=== PATIENT | male | born 1990 | race Caucasian/White ===

== ENCOUNTER 2024-04-29 02:59 | Emergency (ER) | payer MEDICAID, SELFPAY ==
[2024-04-29 03:27] VITALS: BP 127/84; PULSE 79; RESP 16; TEMP 36.9; O2SAT 98; BMI 31.8
[2024-04-29 04:20] LABS: Influenza A PCR NEGATIVE (Negative); Influenza B PCR NEGATIVE (Negative); Resp Syncy Virus RNA Qual PCR NEGATIVE (Negative); SARS COV2 PCR INHOUSE NEGATIVE (Negative)
[2024-04-29 04:52] LABS: MANUAL DIFF FLAG NO
[2024-04-29 04:53] LABS: Basophils Absolute Auto 0.1 X10*3/uL (0.0-0.2); Basophils Percent Auto 0.6 % (0-2); Eosinophils Absolute Auto 0.3 X10*3/uL (0.0-0.4); Eosinophils Percent Auto 2.9 % (0-4); Hematocrit 49.8 % (42.0-52.0); Hemoglobin 17.3 g/dl (14.0-18.0); Imm Gran Abs Auto 0.18 X10*3/uL (0.00-0.03); Lymphocytes Absolute Auto 2.8 X10*3/uL (1.2-4.9); Lymphocytes Percent Auto 30.9 % (20-40); Mean Corpuscular HGB Conc 34.7 g/dl (31.0-36.0); Mean Corpuscular Hemoglobin 29.6 pg (27.0-33.0); Mean Corpuscular Volume 85.1 fL (80.0-98.0); Mean Platelet Volume 9.3 fL (9.4-12.4); Monocytes Absolute Auto 0.9 X10*3/uL (0.1-1.2); Monocytes Percent Auto 9.4 % (2-11); Neutrophils Absolute Auto 4.9 x10*3/uL (2.0-8.3); Neutrophils Percent Auto 54.2 % (45-73); Platelet Count 235 X10*3/uL (160-400); Red Blood Count 5.85 X10*6/uL (4.60-5.80); Red Cell Distribution Width 12.9 % (11.0-16.0); White Blood Count 9.1 X10*3/uL (4.8-10.8)
[2024-04-29 05:08] LABS: Alanine Aminotransferase 72 U/L (0-40); Albumin Level 4.7 g/dL (3.5-5.0); Alkaline Phosphatase 66 U/L (39-117); Anion Gap 12 (12-20); Aspartate Amino Transferase 25 U/L (5-37); Bilirubin Total 0.6 mg/dL (0.0-1.0); Blood Urea Nitrogen 13 mg/dL (9-16); Calcium 9.8 mg/dL (8.4-10.2); Carbon Dioxide 30 mmol/L (22-29); Chloride 103 mmol/L (96-108); Creatinine Clr Calc Pharmacy 82.9; Estimated Glomerular Filt Rate 54; Glucose Random 102 mg/dL (60-115); Potassium 4.1 mmol/L (3.3-5.1); Sodium 141 mmol/L (135-145); Total Protein 7.7 g/dL (6.5-8.0)
[2024-04-29 06:00] VITALS: RESP 18
[2024-04-29 07:24] VITALS: BP 113/75; PULSE 70; RESP 14; TEMP 37.1; O2SAT 97
--- NOTE | 2024-04-29 07:24 | ED.GENADULT ---
HPI - General Adult General Chief complaint: General Medical Stated complaint: light headed/ difficulty breathing Time Seen by Provider: 04/29/24 06:32 Source: patient Mode of arrival: ambulatory Limitations: no limitations History of Present Illness ED Provider: Hayden Abbott PA-C HPI narrative: Carlitos is a 33 year old male who is otherwise healthy who presents to the ED today for shortness of breath and blurry vision. He notes that his symptoms started yesterday morning when he woke up with mild shortness of breath that progressed throughout the day. Later in the afternoon, around 1-2 PM, he noticed that his vision felt blurry when looking down at his hands or at his phone. He notes associated symptoms of mild lightheadedness/dizziness as well as nausea and a feeling of tightness in his throat, though states that all of his symptoms have spontaneously resolved by the time of this interview. He denies any inciting incident, history of asthma, allergies to any medications/foods, trying any new medications/foods, or struggling with seasonal allergies. He also denies any associated fevers, chills, headache, chest pain/palpitations, abdominal pain, N/V/D, recent travel, recent illnesses, and recent tick/bug bites. complaint: SOB, blurry vision Onset (ago): day(s) (1) Location: eyes and neck Pain Consistency: now resolved Associated symptoms: denies other symptoms Treatments prior to arrival: none Related Data Allergies Allergy/AdvReac Type Severity Reaction Status Date / Time No Known Allergies Allergy Unverified 04/29/24 03:31 Review of Systems Review of Systems: Yes all other systems are reviewed and are negative PMFSH Social History Social History Advance Directives: No Advance Directives Information Provided: No Do you have a plan to hurt others: No Plan Physical Exam ED Vital Signs: Vital Signs - 24 hr 04/29/24 03:27 04/29/24 06:00 04/29/24 07:24 Temperature 98.4 F 98.8 F Pulse Rate 79 70 Respiratory Rate 16 18 14 Blood Pressure 127/84 113/75 Pulse Oximetry 98 97 Oxygen Delivery Method Room Air Room Air 04/29/24 07:35 Temperature 98.8 F Pulse Rate 70 Respiratory Rate 14 Blood Pressure 113/75 Pulse Oximetry 97 Oxygen Delivery Method Room Air BMI result Body Mass Index 31.8 Appearance: Alert. Oriented X3. No acute distress. Head: normocephalic, atraumatic. Eyes: LONNY, EOMI, peripheral vision appears slightly limited, though equal bilaterally ENT: Pharynx normal. No tonsillar swelling or exudate. Neck: Normal inspection. Neck supple. CVS: regular rate and rhythm, no murmurs, rubs, or gallops Respiratory: lungs clear to auscultation bilaterally, normal work of breathing without accessory muscle use Skin: Skin warm and dry. Normal skin color. Normal skin turgor. No rashes. Extremities: No lower extremity edema. No joint swelling. Neuro/psych: Oriented X 3. No motor deficit. No sensory deficit. Normal speech and cognition. Medical Decision Making Medical Decision Making MDM Narrative: Carlitos is a 33 year old male who is otherwise healthy who presents to the ED today for shortness of breath and blurry vision. He notes that his symptoms started yesterday morning when he woke up with mild shortness of breath that progressed throughout the day. Later in the afternoon, around 1-2 PM, he noticed that his vision felt blurry when looking down at his hands or at his phone. He notes associated symptoms of mild lightheadedness/dizziness as well as nausea and a feeling of tightness in his throat, though states that all of his symptoms have spontaneously resolved by the time of this interview. He denies any inciting incident, history of asthma, allergies to any medications/foods, trying any new medications/foods, or struggling with seasonal allergies. He also denies any associated fevers, chills, headache, chest pain/palpitations, abdominal pain, N/V/D, recent travel, recent illnesses, and recent tick/bug bites. Patient was tested for COVID, influenza, and RSV, all of which returned negative. General labs were also drawn including a CMP and CBC which revealed a slightly elevated creatinine at 1.49 without any other gross abnormalities. At this time, the diagnosis is still not clear and difficult to determine due to the spontaneous resolution of the patient's symptoms. It is possible that this was an exacerbation of seasonal allergies, given the clinical picture as well as the time of year. It is also possible that this is an exacerbation of underlying asthma, given the patient's symptoms of shortness of breath as well as mild chest/throat tightness. Vitals, lab work, and swabs ruled out any infectious etiology, as there were no signs of leukocytosis, patient is afebrile with normal sinus rhythm and COVID, influenza, and RSV swabs all came back negative. Patient's lab work and clinical picture are reassuring and patient remains stable on exam. Will plan for outpatient follow up. Of note, patient does not currently have a PCP, therefore will be given resources to set this up locally. Differential Diagnosis Differential Diagnoses: The differential diagnosis associated with the presentation includes Asthma, seasonal allergies, allergic reaction, URI (Covid, flu, RSV), doubt acute glaucoma, stroke or other organic cause Lab Data MDM Lab Attestation statement: I reviewed the patient's lab results. Mild elevation of creatinine with otherwise unremarkable workup without any major metabolic derangement Unknown baseline renal function 04/29/24 04:48 04/29/24 04:48 Labs: Lab Results 04/29/24 04/29/24 Range/Units 03:38 04:48 WBC 9.1 (4.8-10.8) X10*3/uL RBC 5.85 H (4.60-5.80) X10*6/uL Hgb 17.3 (14.0-18.0) g/dl Hct 49.8 (42.0-52.0) % MCV 85.1 (80.0-98.0) fL MCH 29.6 (27.0-33.0) pg MCHC 34.7 (31.0-36.0) g/dl RDW 12.9 (11.0-16.0) % Plt Count 235 (160-400) X10*3/uL MPV 9.3 L (9.4-12.4) fL Immature Gran % (Auto) 2.0 H (0.0-0.4) % Neut % (Auto) 54.2 (45-73) % Lymph % (Auto) 30.9 (20-40) % [place] % (Auto) 9.4 (2-11) % Eos % (Auto) 2.9 (0-4) % Baso % (Auto) 0.6 (0-2) % Lymph # (Auto) 2.8 (1.2-4.9) X10*3/uL [place] # (Auto) 0.9 (0.1-1.2) X10*3/uL Eos # (Auto) 0.3 (0.0-0.4) X10*3/uL Baso # (Auto) 0.1 (0.0-0.2) X10*3/uL Abs Immat Gran (auto) 0.18 H (0.00-0.03) X10*3/uL Absolute Neuts (auto) 4.9 (2.0-8.3) x10*3/uL Absolute Nucleated RBC 0.000 (0.0-0.012) X10*3/uL Nucleated RBC % (auto) 0.0 (0.0-0.2) /100WBC Sodium 141 (135-145) mmol/L Potassium 4.1 (3.3-5.1) mmol/L Chloride 103 (96-108) mmol/L Carbon Dioxide 30 H (22-29) mmol/L Anion Gap 12 (12-20) BUN 13 (9-16) mg/dL Creatinine 1.49 H (0.5-1.4) mg/dL Estim Creat Clear Calc 82.9 Estimated GFR 54 Random Glucose 102 (60-115) mg/dL Calcium 9.8 (8.4-10.2) mg/dL Total Bilirubin 0.6 (0.0-1.0) mg/dL AST 25 (5-37) U/L ALT 72 H (0-40) U/L Alkaline Phosphatase 66 (39-117) U/L Total Protein 7.7 (6.5-8.0) g/dL Albumin 4.7 (3.5-5.0) g/dL Influenza Type A (PCR) NEGATIVE (Negative) Influenza Type B (PCR) NEGATIVE (Negative) RSV RNA Qual (PCR) NEGATIVE (Negative) SARS-CoV-2 RNA (RT-PCR) NEGATIVE (Negative) Tests considered The following testing was considered but not selected: Consider chest x-ray given shortness of breath however his lung sounds were clear and he was oxygenating well on room air Prescription Management I considered prescription management with: Antibiotic Critical Care Time Critical Care Time Critical Care Time: No Discharge Plan Discharge Clinical Impression: Blurred vision Patient Disposition: Home, Self-Care Instructions: Blurred Vision (ED) Additional Instructions: your exam and lack of symptoms today were reassuring your lab workup today showed a mild elevation of your kidney function, recommend plenty of oral hydration recommend following up with a PCP for repeat labs in the future If you develop new or worsening symptoms call 911 or come back to the ER for further evaluation. Referrals: [facility] [Provider Group] [facility] [Provider Group] [facility] Primary [facility] [Provider Group] [facility] [Primary Care Provider] - Interventions: ED Discharge Assessment Last Done: 04/29/24 07:35 Discharge Date/Time: 04/29/24 07:35 Print Language: Prydeinig
[2024-04-29 07:35] VITALS: BP 113/75; PULSE 70; RESP 14; TEMP 37.1; O2SAT 97
== END 2024-04-29 07:35 | disposition home or self-care (01) ==
PROVIDERS: Emergency Provider Emergency Medicine Emergency Medical Services
DX: H53.8 Other visual disturbances (principal); R06.02 Shortness of breath; Z03.818 Encounter for observation for suspected exposure to other biological agents ruled out
CPT/HCPCS: 0241U; 36415; 80053; 85025; 99283

== ENCOUNTER 2024-12-20 12:17 | Emergency (ER) | payer MEDICAID, SELFPAY ==
--- NOTE | 2024-12-20 12:18 | ECG_ITS ---
Test Reason : CP Blood Pressure : */* mmHG Vent. Rate : 81 BPM Atrial Rate : 81 BPM P-R Int : 162 ms QRS Dur : 98 ms QT Int : 364 ms P-R-T Axes : 58 39 11 degrees QTcB Int : 422 ms Normal sinus rhythm Normal ECG When compared with ECG of 30-Jan-2009 16:56, MANUAL COMPARISON REQUIRED PREVIOUS ECG IS INCOMPATIBLE Referred By: Generic ED Physician Electronically Signed By: Ole Scales
[2024-12-20 12:30] VITALS: BP 141/67; PULSE 81; RESP 20; TEMP 36.6; O2SAT 97; BMI 30.6
--- NOTE | 2024-12-20 12:30 | ED.GENADULT ---
HPI - General Adult General Chief complaint: Syncope Stated complaint: Chest pain, passed out Related Data Allergies Allergy/AdvReac Type Severity Reaction Status Date / Time No Known Allergies Allergy Verified 12/20/24 12:32 [facility] Social History Social History Advance Directives: No Advance Directives Information Provided: No Do you have a plan to hurt others: No Plan Physical Exam ED Vital Signs: BMI result Body Mass Index 30.6 Course Course Course Narrative: RME, this is a rapid medical exam performed by Khanh Lutz please refer to primary provider for complete H&P- 34 year old male presents for evaluation of chest pain. He reports that he was driving when he had a sudden chest pain. He parked the car and then reports a syncopal episode. He is unsure how long he was out for. He reports his pain has resolved and he came straight to the ER when he woke up. Plan for cardiac workup Medical Decision Making Lab Data 12/20/24 12:36 12/20/24 12:36 Labs: Lab Results 12/20/24 Range/Units 12:36 WBC 7.3 (4.8-10.8) X10*3/uL RBC 5.60 (4.60-5.80) X10*6/uL Hgb 16.5 (14.0-18.0) g/dl Hct 46.4 (42.0-52.0) % MCV 82.9 (80.0-98.0) fL MCH 29.5 (27.0-33.0) pg MCHC 35.6 (31.0-36.0) g/dl RDW 12.4 (11.0-16.0) % Plt Count 227 (160-400) X10*3/uL MPV 9.8 (9.4-12.4) fL Immature Gran % (Auto) 0.7 H (0.0-0.4) % Neut % (Auto) 51.7 (45-73) % Lymph % (Auto) 36.8 (20-40) % [place] % (Auto) 7.0 (2-11) % Eos % (Auto) 3.3 (0-4) % Baso % (Auto) 0.5 (0-2) % Lymph # (Auto) 2.7 (1.2-4.9) X10*3/uL [place] # (Auto) 0.5 (0.1-1.2) X10*3/uL Eos # (Auto) 0.2 (0.0-0.4) X10*3/uL Baso # (Auto) 0.0 (0.0-0.2) X10*3/uL Abs Immat Gran (auto) 0.05 H (0.00-0.03) X10*3/uL Absolute Neuts (auto) 3.8 (2.0-8.3) x10*3/uL Absolute Nucleated RBC 0.000 (0.0-0.012) X10*3/uL Nucleated RBC % (auto) 0.0 (0.0-0.2) /100WBC Sodium 140 (135-145) mmol/L Potassium 4.1 (3.3-5.1) mmol/L Chloride 108 (96-108) mmol/L Carbon Dioxide 28 (22-29) mmol/L Anion Gap 8 L (12-20) BUN 18 H (9-16) mg/dL Creatinine 1.14 (0.5-1.4) mg/dL Estim Creat Clear Calc 108.7 Estimated GFR > 60 Random Glucose 121 H (60-115) mg/dL Calcium 9.2 D (8.4-10.2) mg/dL Magnesium 2.2 (1.6-2.6) mg/dL Total Bilirubin 0.7 (0.0-1.0) mg/dL AST 29 (5-37) U/L ALT 70 H (0-40) U/L Alkaline Phosphatase 69 (39-117) U/L Troponin I High Sens < 2.7 (<3.5-35.0) ng/L Total Protein 7.4 (6.5-8.0) g/dL Albumin 4.6 (3.5-5.0) g/dL Lipase 19 (8-78) U/L Influenza Type A (PCR) NEGATIVE (Negative) Influenza Type B (PCR) NEGATIVE (Negative) RSV RNA Qual (PCR) NEGATIVE (Negative) SARS-CoV-2 RNA (RT-PCR) NEGATIVE (Negative) Discharge Plan Discharge Clinical Impression: Chest pain Patient Disposition: Left W/O Completing Treatment Discharge Date/Time: 12/20/24 15:55
[2024-12-20 12:42] LABS: MANUAL DIFF FLAG NO
[2024-12-20 12:43] LABS: Basophils Percent Auto 0.5 % (0-2); Eosinophils Absolute Auto 0.2 X10*3/uL (0.0-0.4); Eosinophils Percent Auto 3.3 % (0-4); Hematocrit 46.4 % (42.0-52.0); Hemoglobin 16.5 g/dl (14.0-18.0); Imm Gran Abs Auto 0.05 X10*3/uL (0.00-0.03); Imm Gran Pct Auto 0.7 % (0.0-0.4); Lymphocytes Absolute Auto 2.7 X10*3/uL (1.2-4.9); Lymphocytes Percent Auto 36.8 % (20-40); Mean Corpuscular HGB Conc 35.6 g/dl (31.0-36.0); Mean Corpuscular Hemoglobin 29.5 pg (27.0-33.0); Mean Corpuscular Volume 82.9 fL (80.0-98.0); Mean Platelet Volume 9.8 fL (9.4-12.4); Monocytes Absolute Auto 0.5 X10*3/uL (0.1-1.2); Neutrophils Absolute Auto 3.8 x10*3/uL (2.0-8.3); Neutrophils Percent Auto 51.7 % (45-73); Platelet Count 227 X10*3/uL (160-400); Red Cell Distribution Width 12.4 % (11.0-16.0); White Blood Count 7.3 X10*3/uL (4.8-10.8)
[2024-12-20 12:59] LABS: Alanine Aminotransferase 70 U/L (0-40); Albumin Level 4.6 g/dL (3.5-5.0); Alkaline Phosphatase 69 U/L (39-117); Anion Gap 8 (12-20); Aspartate Amino Transferase 29 U/L (5-37); Bilirubin Total 0.7 mg/dL (0.0-1.0); Blood Urea Nitrogen 18 mg/dL (9-16); Calcium 9.2 mg/dL (8.4-10.2); Carbon Dioxide 28 mmol/L (22-29); Chloride 108 mmol/L (96-108); Creatinine Clr Calc Pharmacy 108.7; Estimated Glomerular Filt Rate > 60; Glucose Random 121 mg/dL (60-115); Lipase 19 U/L (8-78); Magnesium 2.2 mg/dL (1.6-2.6); Potassium 4.1 mmol/L (3.3-5.1); Sodium 140 mmol/L (135-145); Total Protein 7.4 g/dL (6.5-8.0)
[2024-12-20 13:13] LABS: Troponin-I High Sensitivity < 2.7 ng/L (<3.5-35.0)
[2024-12-20 13:31] LABS: Influenza A PCR NEGATIVE (Negative); Influenza B PCR NEGATIVE (Negative); Resp Syncy Virus RNA Qual PCR NEGATIVE (Negative); SARS COV2 PCR INHOUSE NEGATIVE (Negative)
--- OUTSIDE RECORDS SUMMARY | 2024-12-20 18:13 | XMS_ITS | Encounter Summary ---
Author Organization [facility] Address [address] [place] [id number] Phone Care Team Providers Care Quality Compliance Consultant Name Role Phone Haja Montgomery Primary Care Provider [phone] Encounter Details Date Type Department Care Team (Late st Contact Info) Description 01/11/2010 Documentation [facility] [place] [facility] [address] [place] [address] Family Medicine, Physician [address] [place] [address] Social History Tobacco Use Types Packs/Day Years Used Date Smoking Tobacco: Never Assessed Sex and Gender Information Value Date Recorded Sex Assigned at Not on file Legal Sex Male 4:27 PM EDT Gender Identity Not on file Sexual Orientation Not on file documented as of this encounter Plan of Treatment Not on file documented as of this encounter Visit Diagnoses Not on filedocumented in this encounter Care Teams Quality Compliance Consultant Relationship Specialty Start Date End Date Haja Montgomery [address] [place] [address] PCP - General 04/03/17 documented as of this encounter
--- OUTSIDE RECORDS SUMMARY | 2024-12-20 18:13 | XMS_ITS | Encounter Summary ---
Author Organization [facility] Address [address] [place], [place] [id number] Phone Care Team Providers Care Financial Aid Administrator Name Role Phone Haja Montgomery Primary Care Provider [phone] Encounter Details Date Type Department Care Team (Late st Contact Info) Description 04/09/2017 Conversion Encounter [facility] [place] [address] [place] [address] Social History Tobacco Use Types Packs/Day Years [...] on filedocumented in this encounter Care Teams Financial Aid Administrator Relationship Specialty Start Date End Date Haja Montgomery [address] [place] [address] PCP - General 04/03/17 documented as of this encounter
--- OUTSIDE RECORDS SUMMARY | 2024-12-20 18:13 | XMS_ITS | Clinical Summary ---
Author Organization [facility] Address [address] [place] [address] Care Team Providers Care Heddler Name Role Phone Unavailable Primary Care Provider Unavailabl e Medications No known medications Active Problems No known active problems Social History Tobacco Use Types Packs/Day Years Used Date Smoking Tobacco: Never Smokeless Tobacco: Never Sex and Gender Information Value Date Recorded Sex Assigned at Not on file Gender Identity Not on file Sexual Orientation Not on file Plan of Treatment Health Maintenance Due Date Last Done Comments Hepatitis B Vaccines (1 of 3 - 3-dose series) 1989 Hepatitis C Screening 1989 COVID-19 Vaccine (#1) 06/04/1990 Depression Screening 2001 Preventative Health Evaluation 12/04/2007 DTap / Tdap / Td (1 - Tdap) 2008 Influenza Vaccine (#1) 2024 Pneumococcal Vaccine Aged Out No long er eligible based on patient's age to complete this topic RSV Ped < 20 months Aged Out No longe r eligible based on patient's age to complete this topic
--- OUTSIDE RECORDS SUMMARY | 2024-12-20 18:13 | XMS_ITS | Clinical Summary ---
Author Organization [facility] Address [address] [place] [phone] Phone Care Team Providers Care School Physical Therapist Name Role Phone Haja Montgomery Primary Care Provider [phone] Immunizations Immunization Administration Dates Next Due DTP 03/23/1995, 1,11/25/1990,06/11,02/18/1990 H1N1 06/13/2009 Hep B, ped/adol 04/07/2002,10/21/2001,06/14/1999 Hib (PRP-T) 07/14/1991,11/22/1990 Influenza Split 06/11/2002 Influenza, injectable, trivalent 06/11/2002 MMR 03/23/1995,07/14/1991 Meningococcal Conj (Menactra) MCV4P 07/02/2006 OPV 03/23/1995, 1,06/11/1990,02/18 Td (adult) (MBL), 2 Lf tetan us toxoid, PF, adsorbed 10/21/2001 Tdap 10/26/2008 Social History Tobacco Use Types Packs/Day Years Used Date Smoking Tobacco: Never Assessed Sex and Gender Information Value Date Recorded Sex Assigned at Not on file Legal Sex Male 4:27 PM EDT Gender Identity Not on file Sexual Orientation Not on file Plan of Treatment Health Maintenance Due Date Last Done Comments Varicella Vaccines (1 of 2 - 13+ 2-dose series) 2002 DTaP,Tdap,and Td Vaccines (7 - Td or Tdap) 10/26/2018 10/26/2008, 10/21/2001, 03/23/1995, Additional history exists Influenza Vaccines (#1) 2024 06/11/2002, 06/11 COVID-19 Vaccine ( season) 2024 HIB Vaccines Completed 07/14/1991, 11/22/1990 IPV Vaccines Completed 03/23/1995, 06/25, 06/11/1990, Additional history exists MMR Vaccines Completed 03/23/1995, 07/14/1991 Hepatitis B Vaccines Completed 04/07/2002, 10/21/2001, 06/14/1999 Meningococcal Vaccine Completed 07/02/2006 HPV Vaccines Aged Out No longer eligi ble based on patient's age to complete this topic Hepatitis A Vaccines Aged Out No long er eligible based on patient's age to complete this topic Men B Vaccine Aged Out No longer elig ible based on patient's age to complete this topic Pneumococcal Vaccine Aged Out No long er eligible based on patient's age to complete this topic Care Teams School Physical Therapist Relationship Specialty Start Date End Date Haja Montgomery [address] [place] [phone] PCP - General 04/03/17
== END 2024-12-20 15:55 | disposition left against medical advice (07) ==
PROVIDERS: Physician Assistant; Emergency Provider Emergency Medicine
DX: R07.9 Chest pain, unspecified (principal); R55 Syncope and collapse; Z03.818 Encounter for observation for suspected exposure to other biological agents ruled out
CPT/HCPCS: 0241U; 80053; 83690; 83735; 84484; 85025; 93005; 99283

== ENCOUNTER → 2024-12-20 12:18 | Outpatient (BNV) | payer MEDICAID, SELFPAY | PROVIDERS: Emergency Provider Emergency Medicine; Visit Provider Internal Medicine Cardiovascular Disease | DX: R07.9 Chest pain, unspecified (principal) | CPT/HCPCS: 93010 ==